=== PATIENT | female | born 1940 | race Caucasian/White ===

== ENCOUNTER 2023-04-08 17:51 | Emergency (ER) | payer BC ==
[~2023-04-08] VITALS: Ht 165.1 cm; Wt 79.8 kg
[2023-04-08 17:58] VITALS: BP 184/86; PULSE 69; RESP 17; TEMP 97.4; O2SAT 98
[2023-04-08] MEDS ORDERED: BACITRACIN OINT 500 UNITS/GM PKT TP ONE ×4 (19:55→20:05)
[2023-04-08 19:57] VITALS: O2SAT 98
[2023-04-08] MEDS ORDERED: BACI-418 TP (19:59)
== END 2023-04-08 20:26 | disposition home or self-care (01) ==
LOC: MED 17:51
DX: S91.012A Laceration without foreign body, left ankle, initial encounter (principal); Z79.2 Long term (current) use of antibiotics; W01.0XXA Fall on same level from slipping, tripping and stumbling without subsequent striking against object, initial encounter; Y92.89 Other specified places as the place of occurrence of the external cause; Y93.89 Activity, other specified; Y99.8 Other external cause status
CPT/HCPCS: 73610; 99283; Q0092